=== PATIENT | female | born 1955 | race Caucasian/White ===

== ENCOUNTER 2020-03-19 10:29 | Emergency (ER) | payer OTHER ==
[2020-03-19 10:42] VITALS: BMI 25.0
--- NOTE | 2020-03-19 11:11 | PDOC ---
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 buttock that has been draining purulent fluid for the past 2 days. She noticed the abscess 1.5 weeks ago. She denies any preceding trauma to the area. She denies any fever/chills, weakness, N/V, abdominal pain, cough or sick contacts. She admits to diarrhea which began this morning. She was also found to febrile in the ED, however repeat temperatures without intervention showed no fever. ROS: GENERAL/CONSTITUTIONAL: No fever/chills. No weakness. HEAD, EYES, EARS, NOSE AND THROAT: No change in vision. No sore throat. CARDIOVASCULAR: No chest pain or shortness of breath. RESPIRATORY: No cough, wheezing, or hemoptysis. GASTROINTESTINAL: No nausea, vomiting, Yes diarrhea. GENITOURINARY: No dysuria, frequency, or change in urination. MUSCULOSKELETAL: No joint or muscle swelling or pain. No neck or back pain. SKIN: Erythemetous, warm abscess on R. buttock NEUROLOGIC: No headache, or change in strength/sensation. HEMATOLOGIC/LYMPHATIC: No anemia, easy bleeding, or history of blood clots. ALLERGIC/IMMUNOLOGIC: No hives or skin allergy. PMH: HTN, HLD PSx: Denied Social Hx: Occasional Etoh, tobacco. 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 Patient conversational and non-toxic appearing. HEAD: No signs of trauma EYES: PERRLA, EOMI NECK: Normal ROM, supple, no lymphadenopathy, JVD, or masses LUNGS: Breath sounds equal, clear to auscultation bilaterally. No wheezes, and no crackles HEART: Regular rate and rhythm, normal S1 and S2, no murmurs, rubs or gallops ABDOMEN: Soft, nontender, normoactive bowel sounds. EXTREMITIES: Normal range of motion, no edema. No clubbing or cyanosis. No cords, erythema, or tenderness NEUROLOGICAL: Cranial nerves II through XII grossly intact. Normal speech, normal gait SKIN: 4x4cm area of erythemetous fluctuance surrouded by 6x6cm of induration. Small area of discharge on R. lower buttocks. MDM: This is a 64 y/o female with a PMH of IVDA (quit 30 yrs ago), HTN, and HLD presenting to the ED because of an abscess on her R. buttock that has been draining purulent fluid for the past 2 days. - Pt febrile at triage, tachycardic, purulent drainage cellulitis vs sepsis - CBC - CMP - Blood cultures - I & D - Would like to admit to r/o sepsis - Pt agreed to I&D, but does not want to stay for admission despite expressing our concerns for sepsis - She agreed to labs but then changed her mind - I&D done - Will prescribe clindamycin and give her return precautions and follow-up - Explained she would be leaving AMA and the risks Past History - Medical History Allergies/Adverse Reactions: Allergies Allergy/AdvReac Type Severity Reaction Status Date / Time No Known Drug Allergies Allergy Verified 03/19/20 11:01 SEASONAL Allergy Mild Uncoded 03/19/20 11:01 Home Medications: Ambulatory Orders Alendronate Sodium [Fosamax] 70 mg PO WEEKLY 03/19/20 Clindamycin [Cleocin -] 450 mg PO TID 7 Days #21 capsule 03/19/20 Lisinopril 10 mg PO DAILY 03/19/20 Methadone [Dolophine -] 70 mg PO DAILY 03/19/20 Venlafaxine HCl [Effexor] 75 mg PO DAILY 03/19/20 COPD: No HTN: Yes Hypercholesterolemia: Yes - Reproductive History Is Patient Now?: No - Psycho-Social/Smoking History Smoking History: Current some day smoker Have you smoked in the past 12 months: Yes Number of Cigarettes Smoked Daily: 10 Information on smoking cessation initiated: No - Substance Abuse Hx (Audit-C & DAST Scrn) How often the patient has a drink containing alcohol: Never Score: In Men: 4 or > Positive; In Women: 3 or > Positive: 0 Screen Result (Pos requires Nsg. Audit-10AR): Negative In the last yr the pt used illegal drug/Rx for NonMed reason: No Score: Yes response is considered Positive: 0 Screen Result (Positive result requires Nsg. DAST-10): Negative *Physical Exam - Vital Signs Last Vital Signs Temp Pulse Resp BP Pulse Ox 101.4 F H 131 H 20 138/89 100 03/19/20 10:32 03/19/20 10:32 03/19/20 10:32 03/19/20 10:32 03/19/20 10:32 Procedures - Incision and Drainage I&D Site: Right: Buttock Betadine cleansed: Yes Anesthesia: 1% Lidocaine Volume(ml): 20 Blade Size: 11 Attempts: 1 Complications: none Dressing: Yes Discharge - Discharge Information Problems reviewed: Yes Clinical Impression/Diagnosis: Abscess Condition: Guarded Disposition: AGAINST MEDICAL ADVICE - Admission No - Additional Discharge Information Prescriptions: Clindamycin [Cleocin -] 450 mg PO TID 7 Days #21 capsule - Follow up/Referral Referrals: [facility] [place] [Provider Group] - Patient Discharge Instructions Patient Printed Discharge Instructions: DI for Incision and Drainage of a Skin Abscess Additional Instructions: You were seen in the ED today for incision and drainage of an abscess on your right buttock. The patient is presenting with an abscess with surrounding cellulitis. I am concerned that this may require IV antibiotics. The patient has verbalized understanding of my concerns. The patient is clinically sober and appears free from distracting injury. The patient appears to have intact insight, judgment, and reason. In my opinion, this patient has the capacity to make decisions The risks of leaving against medical advice without further evaluation treatment were discussed with the patient. These risks include further spread of the infection, , permanent disability. The patient indicated understanding of these risks and appeared to have the capacity to make this decision. She is refusing further care and leaving against medical advice I'm unable to convince the patient to stay. I have asked the patient to return as soon as possible to complete his/her evaluation. I have given the patient a referral to [facility] and advised her about return precautions. - We are sending antibiotics to the pharmacy. Please make sure you take them as directed and finish the entire bottle. - Please follow-up with your primary care physician within the next week - We have referred you to the [facility] as well. - Seek immediate medical care if your wound becomes significantly more painful, swollen, red, you have a large amount of thick drainage, you have fevers to 101F or higher, or you have red streaking from the wound. - Post Discharge Activity
[2020-03-19 11:33] VITALS: BP 147/83; PULSE 125; TEMP 98.7
[2020-03-19] MEDS ORDERED: LIDOCAINE HCL 1%, 10 MG/ML (20ML VIAL) ONE (11:35)
[2020-03-19] MEDS ORDERED: LIDOCAINE HCL 1%, 10 MG/ML (50 mL VIAL) SQ ONE (11:39)
--- NOTE | 2020-03-19 11:47 | PDOC ---
Attending Attestation - Resident Resident Name: BrunildaEmy - ED Attending Attestation I have performed the following: I have examined & evaluated the patient, The case was reviewed & discussed with the resident, I agree w/resident's findings & plan, Exceptions are as noted - HPI HPI: 03/19/20 11:40 64 yo F h/o HTN, HLD, former IVDU stopped 30 years ago p/w abscess to R buttocks x7-10 days, draining x2 days. Reports significant pain in the area. Denies any preceding trauma. Denies fevers or chills at home however found to be febrile in ED at triage. Denies n/v, cough, CP, SOB or abdominal pain. Reports some loose stools this AM but otherwise no other medical complaints. - Physicial Exam PE: 03/19/20 11:41 General: non-toxic appearing Skin: ~[id number] area of erythema and fluctuance and inferolateral portion of R buttocks with small amount of purulent drainage and ~4cm of surrounding induration, erythema and increased warmth, +ttp, no crepitus Neuro: awake, alert, ambulatory with steady gait, no focal deficits - Medical Decision Making 03/19/20 11:43 64 yo F with R buttocks abscess, small amount of drainage on exam with surrounding induration and cellulitis. Denies systemic signs of infection at home however patient found to have fever at triage and tachycardic. Repeat VS in ED without intervention showed tachycardia however fever resolved. Plan: -labs -I+D abscess -abx -plan admit for IV abx given large abscess with surrounding cellulitis and fever and tachycardia concerning for sepsis/systemic signs of infection however patient states she does not think she can stay for admission, R/B/A discussed with patient however she states she cannot stay at this time and verbalized risks of leaving. Patient likely to leave AMA with PO abx after I+D in ED. This clinical encounter is taking place during a federal and state health care emergency attributable to the novel [place] Virus pandemic. The [employer] of the Department of Health and Human Services has declared, pursuant to the Public Health Service Act 319F-3 (42 U.S.C. 247d-6d), that a covered persons activities related to medical countermeasures against COVID-19 will be immune from liability under Federal and State law. 03/19/20 13:57 Pt refused labs. Requesting to leave AMA. will d/c AMA with rx for clindamycin, recommend 2 day wound check. Return sooner for new or worsening symptoms. Discharge - Discharge Information Problems reviewed: Yes Clinical Impression/Diagnosis: Abscess Condition: Guarded Disposition: AGAINST MEDICAL ADVICE - Additional Discharge Information Prescriptions: Clindamycin [Cleocin -] 450 mg PO TID 7 Days #21 capsule - Follow up/Referral Referrals: [facility] [place] [Provider Group] - Patient Discharge Instructions Patient Printed Discharge Instructions: DI for Incision and Drainage of a Skin Abscess Additional Instructions: You were seen in the ED today for incision and drainage of an abscess on your right buttock. The patient is presenting with an abscess with surrounding cellulitis. I am concerned that this may require IV antibiotics. The patient has verbalized understanding of my concerns. The patient is clinically sober and appears free from distracting injury. The patient appears to have intact insight, judgment, and reason. In my opinion, this patient has the capacity to make decisions The risks of leaving against medical advice without further evaluation treatment were discussed with the patient. These risks include further spread of the infection, , permanent disability. The patient indicated understanding of these risks and appeared to have the capacity to make this decision. She is refusing further care and leaving against medical advice I'm unable to convince the patient to stay. I have asked the patient to return as soon as possible to complete his/her evaluation. I have given the patient a referral to [facility] and advised her about return precautions. - We are sending antibiotics to the pharmacy. Please make sure you take them as directed and finish the entire bottle. - Please follow-up with your primary care physician within the next week - We have referred you to the [facility] as well. - Seek immediate medical care if your wound becomes significantly more painful, swollen, red, you have a large amount of thick drainage, you have fevers to 101F or higher, or you have red streaking from the wound. - Post Discharge Activity
== END 2020-03-19 13:49 | disposition left against medical advice (07) ==
LOC: FER 10:29
PROC: 0H98XZZ Drainage of Buttock Skin, External Approach (ICD-10-PCS; principal; 2020-03-19)
DX: L02.31 Cutaneous abscess of buttock (principal)
CPT/HCPCS: 99284-25

== ENCOUNTER 2020-10-13 15:54 | Emergency (ER) | payer OTHER ==
[2020-10-13] MEDS ORDERED: LIDOCAINE 1%/EPI 1:100000 (20 ML MULTI DOSE VIAL) INF ONE (16:19)
[2020-10-13] MEDS ORDERED: LIDO 2%/EPI 1:200000 PRESRVFRE (20 ML SDVIAL) ONE (16:21)
[2020-10-13 17:16] VITALS: BP 114/75; PULSE 110; TEMP 99.4; BMI 25.0
== END 2020-10-13 17:21 | disposition left against medical advice (07) ==
LOC: FER 15:54
PROC: 0H98XZZ Drainage of Buttock Skin, External Approach (ICD-10-PCS; principal; 2020-10-13)
DX: L03.317 Cellulitis of buttock (principal)
CPT/HCPCS: 99283-25

== ENCOUNTER 2021-03-31 10:50 | Emergency (ER) | payer OTHER ==
[2021-03-31 11:19] VITALS: BP 118/71; PULSE 97; TEMP 98.1; BMI 24.4
[2021-03-31] MEDS ORDERED: LIDOCAINE HCL 1%, 10 MG/ML (50 mL VIAL) SQ ONE (11:37)
[2021-03-31] MEDS ORDERED: LIDOCAINE HCL 1%, 10 MG/ML (20ML VIAL) ONE (11:59)
== END 2021-03-31 12:44 | disposition home or self-care (01) ==
LOC: FER 10:50
PROC: 0H9KXZZ Drainage of Right Lower Leg Skin, External Approach (ICD-10-PCS; principal; 2021-03-31)
DX: L02.415 Cutaneous abscess of right lower limb (principal); L03.115 Cellulitis of right lower limb
CPT/HCPCS: 99283-25

== ENCOUNTER 2023-05-14 13:56 | Emergency (ER) | payer OTHER ==
[2023-05-14 14:18] VITALS: BP 121/70; PULSE 96; RESP 18; TEMP 99.9; BMI 23.4
[2023-05-14] MEDS ORDERED: ACETAMINOPHEN 325 MG TABLET (FP) PO ONE (15:52)
[2023-05-14] MEDS ORDERED: ACETAMINOPHEN 325 MG TABLET (FP) ONE (15:56)
[2023-05-14] MEDS ORDERED: IBUPROFEN 400 MG TABLET (FP) PO ONE (17:23)
== END 2023-05-14 18:12 | disposition home or self-care (01) ==
LOC: FER 13:56
DX: S52.352A Displaced comminuted fracture of shaft of radius, left arm, initial encounter for closed fracture (principal); M25.531 Pain in right wrist; M79.631 Pain in right forearm; W01.198A Fall on same level from slipping, tripping and stumbling with subsequent striking against other object, initial encounter; Y92.008 Other place in unspecified non-institutional (private) residence as the place of occurrence of the external cause
CPT/HCPCS: 73090-TC-RT-FY; 73110-TC-RT-FY; 73130-TC-RT-FY; 99283-25